=== PATIENT | female | born 1940 | race Caucasian/White ===

== ENCOUNTER 2021-06-20 12:57 | Emergency (ER) | payer OTHER ==
[~2021-06-20] VITALS: Ht 160 cm; Wt 72.6 kg
--- NOTE | 2021-06-20 12:57 | NUR ---
PT BIB SON C/O L HAND WOUND AND ABSCESS X 1 WEEK. S/P CHEMO INFUSION. PT IS AAOX4, NOT IN RESPIRATORY DISTRESS, HOOKED TO TOOL GRINDER OPERATOR EXTERNAL, KEPT RESTED AND COMFORTABLE. WILL CONTINUE TO MONITOR.
--- NOTE | 2021-06-20 15:37 | NUR ---
PT SEEN AND EXAMINED BY .
--- NOTE | 2021-06-20 15:45 | NUR ---
IV LINE ESTABLISHED BLOOD DRAWN AND SENT TO LAB.
[2021-06-20 15:52] LABS: BASOPHILS % (AUTO) 0.6 % (0.0-2.0); EOSINOPHILS % (AUTO) 2.6 % (0.0-6.0); HEMATOCRIT 34 % (33-45); LYMPHOCYTES # (AUTO) 0.5 K/uL (0.8-4.8); LYMPHOCYTES % (AUTO) 7.4 % (20.0-44.0); MEAN CORPUSCULAR HGB CONC 33 g/dl (31.0-36.0); MEAN CORPUSCULAR VOLUME 106 fL (82-100); MONOCYTES # (AUTO) 0.6 K/uL (0.1-1.30); NEUTROPHILS # (AUTO) 4.8 K/uL (1.8-8.9); NEUTROPHILS % (AUTO) 79.4 % (43.0-81.0); PLATELET COUNT (AUTO) 261 K/uL (150-450); RED BLOOD CELL COUNT(AUTO) 3.17 MIL/uL (4.0-5.2); WHITE BLOOD COUNT (AUTO) 6.1 K/uL (4.3-11.0)
[2021-06-20 15:59] LABS: CALCIUM, SERUM 9.3 mg/dL (8.5-10.1); CREATININE 0.8 mg/dL (0.6-1.3); POTASSIUM 4.1 mmol/L (3.5-5.1)
[2021-06-20] MEDS ORDERED: VANCOMYCIN HCL 1.25 GM in IV D5W 260 ML IV ONE (16:00)
--- NOTE | 2021-06-20 16:01 | NUR ---
COVID SPECIMEN COLLECTED AND SENT TO LAB.
[2021-06-20] MEDS ORDERED: LEVO50TA8 PO (16:13)
--- NOTE | 2021-06-20 17:15 | NUR ---
[facility] THERM[facility] SPRAY OPERATOR CALLED AND WAS NOTIFIED OF PT STATUS. FAXED CLINICALS TO [phone]. ABLE TO REACH HITESH AT [phone]
[2021-06-20] MEDS ORDERED: HYDROCODONE/APAP 10/325MG TABLET ONE (18:09)
[2021-06-20] MEDS ORDERED: HYDROCODONE/APAP 10/325MG TABLET PO ONE (18:30)
--- NOTE | 2021-06-20 19:04 | NUR ---
CALLED [facility]IST[facility] AND WAS NOTIFIED THAT THE PT HAS BEEN ACCEPTED TO [facility]. AND WILL RECIEVE A CALL BACK WITH TRANSFER INFO
--- NOTE | 2021-06-20 19:36 | NUR ---
PT REFUSED TO GO TO [facility] AND CALLED SKILLS INSTRUCTOR, HITESH, AND CANCELED REQUEST FOR TRANSFER. THE PT WILL NOW SIGN AMA TO GO TO [facility].
--- NOTE | 2021-06-20 19:45 | NUR ---
Patient does not wish to proceed with medical care recommended by Dr. Ashraf. Patient given information related to possible complications, up to and including , which could occur as a result of leaving the hospital at this time. Patient verbalizes understanding of risks involved due to leaving against medical advice. Patient has signed AMA form. IV removed. Catheter intact and site benign. Pressure and 4x4 applied to site. No bleeding noted. Pt ambulatory with a steady gait
[2021-06-20 19:57] VITALS: BP 125/73
== END 2021-06-20 20:05 | disposition left against medical advice (07) ==
LOC: ER 13:20
DX: T80.89XA Other complications following infusion, transfusion and therapeutic injection, initial encounter (principal); T81.49XA Infection following a procedure, other surgical site, initial encounter; L03.114 Cellulitis of left upper limb; Y84.8 Other medical procedures as the cause of abnormal reaction of the patient, or of later complication, without mention of misadventure at the time of the procedure; Y92.89 Other specified places as the place of occurrence of the external cause; S61.402A Unspecified open wound of left hand, initial encounter; R60.0 Localized edema; C78.5 Secondary malignant neoplasm of large intestine and rectum; Z53.29 Procedure and treatment not carried out because of patient's decision for other reasons; Z20.822 Contact with and (suspected) exposure to COVID-19
CPT/HCPCS: 36415; 80048; 85025; 87040; 87426; 96365; 99291; C9803; J7060